=== PATIENT | female | born 1955 | race Caucasian/White ===

== ENCOUNTER 2017-01-03 05:51 | Inpatient (IN) | payer OTHER ==
[2016-12-21 08:14] VITALS: BMI 36.0
--- NOTE | 2016-12-21 08:46 | PAT Medication Instructions ---
Service Date Dec 21, 2016. Current Home Medication List Atorvastatin (Lipitor), 10 MG PO HS Cyclobenzaprine Hcl (Flexeril), 10 MG PO HS PRN for RN Escitalopram Oxalate (Lexapro), 20 MG PO QAM Ibuprofen (Motrin), 800 MG PO BID PRN for RN Levothyroxine Sodium (Levothyroxine Sodium), 1 TAB PO QAM Lorazepam (Ativan), 0.5 MG PO TID PRN for PN Pramipexole (Mirapex), 0.125 MG PO BID Medication Instructions For Your Scheduled Surgery - Check with surgeon for instructions: Ibuprofen (Motrin), 800 MG PO BID PRN for RN - Hold the following medications the morning of surgery: Cyclobenzaprine Hcl (Flexeril), 10 MG PO HS PRN for RN Pramipexole (Mirapex), 0.125 MG PO BID - Take the following medications the morning of surgery with a sip of water: Lorazepam (Ativan), 0.5 MG PO TID PRN for PN Levothyroxine Sodium (Levothyroxine Sodium), 1 TAB PO QAM Escitalopram Oxalate (Lexapro), 20 MG PO QAM - Hold the following medications as scheduled the night before surgery: Pramipexole (Mirapex), 0.125 MG PO BID (okay to take morning dose prior to noon day prior to surgery) - Take the following medications as scheduled the night before surgery: Lorazepam (Ativan), 0.5 MG PO TID PRN for PN Atorvastatin (Lipitor), 10 MG PO HS Cyclobenzaprine Hcl (Flexeril), 10 MG PO HS PRN for RN If you have any questions please call us at [phone] (Cookie Parekh PA-C) or [phone] or [phone]
[2016-12-21 09:35] LABS: BASO % 0.3 %; BASO ABS # 0.02 K/uL (0-0.2); COMPLETE YES; EOS % 4.6 %; HEMATOCRIT 43.2 % (37-47); IG% 0.4 %; LYMPH % 25.5 %; LYMPH ABS # 1.72 K/uL (1.2-3.4); MEAN CELL VOLUME 91.1 fL (80-100); MONO % 8.3 %; NEUT % 60.9 %; PLATELET COUNT 246 K/uL (130-400); RED BLOOD COUNT 4.74 M/uL (4.2-5.4); WHITE BLOOD COUNT 6.74 K/uL (4.8-10.8)
--- NOTE | 2016-12-21 09:41 | DIAGNOSTIC IMAGING REPORT ---
CHEST PREADMISSION(PA/LAT) CLINICAL HISTORY: Preoperative evaluation. COMPARISON STUDY: No previous studies for comparison. FINDINGS: Lung volumes are normal. Lungs are clear. There is no pneumothorax or pleural effusion. Cardiac size is normal. Mediastinal contours are normal. IMPRESSION: No acute cardiopulmonary findings. Electronically signed by: Jefry Barajas M.D. 12/21/2016 9:40 AM Dictated Date/Time: 12/21/2016 9:29 AM
[2016-12-21 09:49] LABS: URINE APPEARANCE CLEAR (CLEAR); URINE BILIRUBIN NEG (NEG); URINE COLOR YELLOW; URINE EPITHELIAL CELL AUTO >30 /lpf (0-5); URINE NITRITE NEG (NEG); URINE SPECIFIC GRAVITY 1.018 (1.000-1.030); UROBILINOGEN NEG (NEG)
[2016-12-21 10:13] LABS: MANUAL MICROSCOPIC REQUIRED? NO; REVIEW REQ? NO
[2016-12-21 10:13] LABS: CALCIUM 9.4 mg/dl (8.5-10.1); CREATININE 0.95 mg/dl (0.60-1.20); POTASSIUM 4.4 mmol/L (3.5-5.1)
[2017-01-03] VITALS (9 sets, daily range): BP systolic 103–153; BP diastolic 65–92; PULSE 70–98; TEMP 36.4–36.7; O2SAT 95–99; Ht 170.2 cm; Wt 104.5 kg
[~2017-01-03] VITALS: Ht 170.2 cm; Wt 104.5 kg
[~2017-01-03 05:51] MED LIST: ATOR10TA88 PO; CYCL10TA6 PO; ESCI1TAB10 PO; IBUP-1428 PO; LEVO25TA5 PO; LORA-741 PO; PRAM0.129 PO
[2017-01-03] MEDS ORDERED: CEFAZOLIN 2000 MG/60 ML D5W IV SCH (06:00)
[2017-01-03] MEDS ORDERED: LACTATED RINGER'S 1000ML 1,000 ML IV SCH (06:00)
[2017-01-03] MEDS ORDERED: FENTANYL CITRATE INJ 50 MCG/1 ML 2 ML VIAL ONE ×4 (06:43→09:48)
[2017-01-03] MEDS ORDERED: MIDAZOLAM HCL 1 MG/ML 2ML VIAL ONE (06:43)
[2017-01-03] MEDS ORDERED: BACITRACIN 50000 UNIT VIAL ONE (06:53)
[2017-01-03] MEDS ORDERED: BUPIVACAINE/EPINEPHRINE 0.5% MPF 1:200,000 30 ML VIAL ONE (06:53)
[2017-01-03] MEDS ORDERED: SODIUM CHLORIDE 0.9% PF 50 ML VIAL ONE (06:53)
--- NOTE | 2017-01-03 07:23 | History & Physical Bridge Note ---
H&P Re-Evaluation Bridge Note: I have examined the patient, reviewed the History & Physical and in the interval since the performance of the History & Physical I have noted the following changes of clinical significance: No changes noted
--- NOTE | 2017-01-03 07:33 | History and Physical ---
History & Physical Date Jan 03, 2017. Chief Complaint back and leg pain History of Present Illness The patient is a 61 year old female with complaints of Additional History Hepatic Disease: No Endocrine Disorder: No Kidney Disease: No Hypertension: No Heart Disease: No Bleeding Tendencies: No Infectious Diseases: No Allergies Coded Allergies: No Known Allergies (Unverified , 01/03/17) Home Medications Scheduled Atorvastatin (Lipitor), 10 MG PO HS Escitalopram Oxalate (Lexapro), 20 MG PO QAM Levothyroxine Sodium (Levothyroxine Sodium), 1 TAB PO QAM Pramipexole (Mirapex), 0.125 MG PO BID Scheduled PRN Cyclobenzaprine Hcl (Flexeril), 10 MG PO HS PRN for RN Ibuprofen (Motrin), 800 MG PO BID PRN for RN Lorazepam (Ativan), 0.5 MG PO TID PRN for PN Physical Examination Skin: warm/dry, no rash Eyes: normal inspection, EOMI, sclerae normal ENT: normal ENT inspection, pharynx normal Head: normocephalic, atraumatic Neck: supple, no adenopathy, trachea midline Respiratory/Chest: lungs clear, normal breath sounds, no respiratory distress Cardiovascular: regular rate, rhythm, no edema, no murmur Abdomen / GI: normal bowel sounds, non tender Back: normal inspection Extremities: normal inspection, normal range of motion Neurologic/Psych: no motor/sensory deficits, alert, normal reflexes, oriented x 3 Diagnosis lumbar stenosis Plan of Treatment decompression fusion L2-S1
[2017-01-03] MEDS ORDERED: HYDROmorphone INJ 2 MG/ML SYR/VIAL ONE ×2 (08:14→10:12)
[2017-01-03] MEDS ORDERED: PHENYLEPHRINE 100MCG/ML 5ML SYR IV PRN (08:30)
[2017-01-03] MEDS ORDERED: ONDANSETRON INJ 2 MG/ML 2 ML VIAL IV PRN ×2 (08:30→10:15)
[2017-01-03] MEDS ORDERED: LABETALOL HCL IV 5 MG/ML 20ML IV PRN (08:30)
[2017-01-03] MEDS ORDERED: NALOXONE HCL 0.4 MG/1 ML VIAL/CARP IV PRN ×3 (08:30→10:15)
[2017-01-03] MEDS ORDERED: MoRPHine SULFATE 4 MG/ML 1 ML CARP\\VIAL IV PRN (08:30)
[2017-01-03] MEDS ORDERED: HYDROmorphone INJ 1 MG/ML SYR IV PRN ×2 (08:30→12:15)
[2017-01-03] MEDS ORDERED: FLUMAZENIL 0.1 MG/1 ML 10 ML VIAL IV PRN (08:30)
[2017-01-03] MEDS ORDERED: ATROPINE SULFATE 0.1 MG/ML 5ML SYR IV PRN (08:30)
[2017-01-03] MEDS ORDERED: EpHEDrine SULFATE INJ 50 MG/ML AMP IV PRN (08:30)
[2017-01-03] MEDS ORDERED: MEPERIDINE HCL 25 MG/ML CARP IV PRN (08:30)
[2017-01-03] MEDS ORDERED: EpHEDrine SULFATE 50MG/5ML SYR ONE (09:12)
[2017-01-03] MEDS ORDERED: PHENYLEPHRINE HCL INJ 10 MG/ML VIAL ONE (09:12)
[2017-01-03] MEDS ORDERED: PHENYLEPHRINE 100MCG/ML 5ML SYR ONE (09:12)
[2017-01-03] MEDS ORDERED: PROPOFOL IV EMULSION 10 MG/ML 20 ML VIAL IV ONE (09:38)
[2017-01-03] MEDS ORDERED: LIDOCAINE HCL 2% 2 ML VIAL (20MG/ML) ONE (09:38)
[2017-01-03] MEDS ORDERED: DEXAMETHASONE SOD INJ 4 MG/ML VIAL ONE (09:38)
[2017-01-03] MEDS ORDERED: ROCURONIUM BROMIDE 10 MG/ML 5 ML VIAL ONE (09:38)
[2017-01-03] MEDS ORDERED: FLOSEAL HEMOSTATIC MATRIX 10ML TOP ONE (09:54)
[2017-01-03] MEDS ORDERED: SODIUM CHLORIDE 0.9% 1000ML 1,000 ML IV SCH (10:03)
--- NOTE | 2017-01-03 10:03 | [facility] Post Operative Brief Note ---
Immediate Operative Summary Operative Date Jan 03, 2017. Pre-Operative Diagnosis Lumbar stenosis Post-Operative Diagnosis Lumbar stenosis Procedure(s) Performed L2-S1 Lumbar Decompression, posterior spinal fusin with instrumentation, interbody Fusion with application of interbody cage at L5-S1, with use of Alona and bone morphogenetic protein. Surgeon Dr Webster Pipe Roller Surgeon(s) Mag Lazo PA-C Estimated Blood Loss 500 Findings stenosis Specimens None per surgeon
--- NOTE | 2017-01-03 10:12 | DIAGNOSTIC IMAGING REPORT ---
INTRAOPERATIVE RADIOGRAPHS CLINICAL HISTORY: L2-S1 spinal fusion. Fluoroscopy time: 32 seconds. FINDINGS: 3 spot fluoroscopic views of lumbar spine are presented. There is evidence of discectomy at L5-S1 with laminectomy and posterior fusion from L2 -S1. Interpedicular screws are present at all levels. The orthopedic hardware appears intact. IMPRESSION: Intraoperative images from L2 -S1 spinal fusion as above. Electronically signed by: Dontae Campa M.D. 01/03/2017 10:11 AM Dictated Date/Time: 01/03/2017 10:10 AM
[2017-01-03] MEDS ORDERED: ONDANSETRON INJ 2 MG/ML 2 ML VIAL ONE (10:13)
[2017-01-03] MEDS ORDERED: GLYCOPYRROLATE INJ 0.2 MG/ML VIAL ONE (10:13)
[2017-01-03] MEDS ORDERED: KETOROLAC TROMETHAMINE 30 MG/ML VIAL ONE (10:13)
[2017-01-03] MEDS ORDERED: NEOSTIGMINE METHYLSULFATE 1 MG/ML 10ML VIAL ONE (10:13)
[2017-01-03] MEDS ORDERED: DO NOT ADMINISTER FLU VACCINE PRN ×3 (10:15)
[2017-01-03] MEDS ORDERED: hydrOXYzine HCL 25 MG TAB PO PRN (10:15)
[2017-01-03] MEDS ORDERED: LORAZEPAM 0.5 MG TAB PO PRN (10:15)
[2017-01-03] MEDS ORDERED: METOCLOPRAMIDE HCL INJ 5 MG/ML 2 ML VIAL IV PRN (10:15)
[2017-01-03] MEDS ORDERED: ALUMINUM/MAGNESIUM SUSP 30 ML UDC PO PRN (10:15)
[2017-01-03] MEDS ORDERED: DO NOT ADMINISTER PNEUMOCOCCAL VACCINE PRN ×2 (10:15)
[2017-01-03] MEDS ORDERED: BISACODYL 10 MG SUPP PR PRN (10:15)
[2017-01-03] MEDS ORDERED: MAGNESIUM HYDROXIDE SUSP 30 ML UDC PO PRN (10:15)
[2017-01-03] MEDS ORDERED: SOD PHOSPHATE/SOD BIPHOSPHATE ENEMA 132 ML BTL PR PRN (10:15)
[2017-01-03] MEDS ORDERED: FAMOTIDINE 20 MG TAB PO PRN (10:15)
[2017-01-03] MEDS ORDERED: ACETAMINOPHEN IV 100 ML IV PRN (10:15)
[2017-01-03] MEDS ORDERED: PROMETHAZINE HCL INJ 12.5 MG in SODIUM CHLORIDE 0.9% 50ML 50 ML IV PRN (10:15)
[2017-01-03] MEDS ORDERED: LORAZEPAM INJ 0.5 MG in SYRINGE 0 ML IV PRN (10:15)
--- NOTE | 2017-01-03 10:23 | OPERATIVE REPORT ---
DATE OF OPERATION: 01/03/2017 PREOPERATIVE DIAGNOSIS: Spinal stenosis. POSTOPERATIVE DIAGNOSIS: Same. PROCEDURES PERFORMED: 1. Lumbar decompression, medial facetectomy and foraminotomy, L2-L3, L3-L4, L4-L5, and L5-S1. 2. Posterior spinal fusion, L2-L3, L3-L4, L4-L5, and L5-S1. 3. Placement of posterior segmental instrumentation using Orthros rods and screws, L2-S1 as well as a crosslink. 4. Interbody fusion, L5-S1. 5. Placement of PEEK cage, 12 x 26 mm at L5-S1. 6. Placement of locally harvested morselized autograft in the posterior gutters. 7. Placement of Infuse collagen sponge combined with Mastergraft in the posterior gutters and Alona bone grafting in the interbody space. SURGEON: Dr. Levi Webster. CUSTOMER RELATIONS ADVISOR: Mag Lazo PA-C. Due to the complex nature of the procedure, the entire surgery was performed with the compliance assistant of Mag Lazo PA-C. The clinical assistant professor, under direct supervision, was involved in the actual performance of all aspects of the surgical procedure including hemostasis, tissue retraction and incision, instrument management, patient positioning, and wound closure. ANESTHESIA: General. DISPOSITION: The patient awakened and taken to PACU in stable condition. HISTORY OF PATIENT'S PROBLEMS: This is a 61-year-old female that presents with above-mentioned diagnosis. After failing an extensive course of nonoperative care, she elected to undergo the above-mentioned procedures. Risks, benefits, pros, cons, and alternatives were outlined in detail preoperatively. DESCRIPTION OF PROCEDURE: The patient was met with preoperatively, the case discussed and all questions were addressed. At that point, the patient was taken back to operative suite and after undergoing successful general intubation by the department of anesthesia, she was placed in prone position on Angelito table atop Luca frame. All bony prominences were well padded and the eyes were inspected to ensure there was no external pressure placed upon them. At this point, lumbar spine was prepped and draped in normal sterile fashion. Sharp dissection with the assistance of Bovie cautery was performed down to and exposing the lamina and transverse processes of L2, L3, L4, L5 and sacral ala bilaterally. From a caudal to cephalad fashion, complete laminectomy of L5, L4, L3 and L2 was performed addressing severe lateral recess and foraminal stenosis. Pedicle screws were then placed in L2, L3, L4, L5 and S1 levels bilaterally with the assistance of fluoroscopy and appropriately sized angela contoured and placed. Through a transforaminal approach on the right, a complete diskectomy of L5-S1 was performed, endplates curetted to subcortical bleeding bone and a 12 x 26 mm PEEK cage filled with Alona bone grafting tapped into position. Rods were then locked into final position bilaterally and a crosslink placed. The transverse processes of L2, L3, L4, L5 and sacral ala were then burred to subcortical bleeding bone. Infuse collagen sponge combined with Mastergraft and locally harvested morselized autograft was placed in the posterior gutters. A 7 flat KAREEN drain was inserted. Incision was closed with 1-0 Vicryl in the fascia, 2-0 Vicryl subcutaneously, and 4-0 Monocryl for final skin closure. Steri-Strips and sterile dressing were placed. The patient was awakened and taken to PACU in stable condition. I attest to the content of the Intraoperative Record and any orders documented therein. Any exceptio ns are noted below.
[2017-01-03] MEDS ORDERED: HYDROmorphone HCL 0.5MG/ML 50 ML CASSETTE ONE (10:29)
[2017-01-03] MEDS ORDERED: METOPROLOL TARTRATE 1 MG/ML VIAL ONE (10:57)
[2017-01-03] MEDS ORDERED: METOPROLOL TARTRATE 1 MG/ML VIAL IV STA (11:02)
--- NOTE | 2017-01-03 11:13 | Anesthesiology Progress Note ---
Anesthesia Post Op Note Date & Time Jan 03, 2017 at 11:13 Vital Signs Pain Intensity: 0 Vital Signs Past 12 Hours Date Time Temp Pulse Resp B/P Pulse Ox O2 Delivery O2 Flow Rate FiO2 01/03/17 10:27 36.3 97 14 120/65 96 Mask 10 01/03/17 06:15 36.4 70 20 153/92 99 Room Air Notes Mental Status: alert / awake / arousable, participated in evaluation Pt Amnestic to Procedure: Yes Nausea / Vomiting: adequately controlled Pain: adequately controlled Airway Patency, RR, SpO2: stable & adequate BP & HR: stable & adequate Hydration State: stable & adequate Anesthetic Complications: no major complications apparent
[2017-01-03] MEDS: LACTATED RINGER'S 1000ML 1,000 ML IV SCH ×2 (12:03→18:03)
[2017-01-03] MEDS: HYDROmorphone HCL 0.5MG/ML 50 ML CASSETTE IV PRN ×2 (14:59→18:58)
[2017-01-03] MEDS: CEFAZOLIN IV 2,000 MG in DEXTROSE 5% 50ML 50 ML IV SCH ×2 (16:06→23:35)
[2017-01-03] MEDS: DEXAMETHASONE INJ 6 MG in SYRINGE 0 ML IV SCH (18:04)
[2017-01-03] MEDS: DOCUSATE SODIUM/SENNA 50/8.6MG TAB PO SCH (20:33)
[2017-01-03] MEDS: PRAMIPEXOLE DIHYDROCHLORIDE 0.25MG TAB PO SCH (20:33)
[2017-01-03] MEDS: ATORVASTATIN 10 MG TAB PO SCH (20:33)
[2017-01-04] MEDS: LACTATED RINGER'S 1000ML 1,000 ML IV SCH (00:57)
[2017-01-04] MEDS: DEXAMETHASONE INJ 6 MG in SYRINGE 0 ML IV SCH ×2 (01:53→10:08)
[2017-01-04 03:16] VITALS: BP 123/65; PULSE 86; TEMP 36.9; O2SAT 94
[2017-01-04] MEDS: LEVOTHYROXINE 25 MCG TAB PO SCH (05:51)
[2017-01-04] MEDS ORDERED: NURSING DECISION MEDICATION ORDER SCH (06:00)
[2017-01-04] MEDS ORDERED: DC PCA SCH (06:00)
[2017-01-04] MEDS ORDERED: HYDROmorphone INJ 0.5 MG/0.5 ML SYR IV PRN (06:00)
[2017-01-04 06:09] LABS: COMPLETE YES; HEMATOCRIT 32.6 % (37-47); IG% 0.4 %; LYMPH % 3.2 %; LYMPH ABS # 0.44 K/uL (1.2-3.4); MEAN CELL VOLUME 92.6 fL (80-100); MEAN CORPUSCULAR HEMOGLOBIN 30.7 pg (25-34); MEAN CORPUSCULAR HGB CONC 33.1 g/dl (32-36); MEAN PLATELET VOLUME 10.3 fL (7.4-10.4); MONO % 5.6 %; NEUT % 90.8 %; PLATELET COUNT 191 K/uL (130-400); RED BLOOD COUNT 3.52 M/uL (4.2-5.4); WHITE BLOOD COUNT 13.69 K/uL (4.8-10.8)
[2017-01-04 06:38] LABS: BUN/CREATININE RATIO 10.7 (10-20); CALCIUM 8.6 mg/dl (8.5-10.1); CREATININE 0.88 mg/dl (0.60-1.20); POTASSIUM 4.3 mmol/L (3.5-5.1)
[2017-01-04 07:05] VITALS: BP 99/61; PULSE 81; TEMP 36.6; O2SAT 91
--- NOTE | 2017-01-04 08:40 | PROGRESS NOTE ---
DATE: 01/04/2017 DATE: 01/04/2017. SUBJECTIVE: Postop day 1. Back pain controlled. Leg pain markedly improved. Vital signs stable. T-max 36.9. KAREEN drained 125 mL. Hematocrit this a.m. is 32.6. OBJECTIVE: On exam she is sitting up at the bedside. Has good strength to testing. Appears comfortable. ASSESSMENT: Status post lumbar decompression and fusion. PLAN: At this time, will initiate physical therapy, advance her bowel regimen and assess her progress and anticipate possible home this weekend.
[2017-01-04] MEDS: ESCITALOPRAM OXALATE 20 MG TAB PO SCH (08:55)
[2017-01-04] MEDS: PRAMIPEXOLE DIHYDROCHLORIDE 0.25MG TAB PO SCH ×2 (08:56→20:54)
[2017-01-04] MEDS: OXYCODONE HCL IR 5 MG TAB (IMMEDIATE RELEASE) PO PRN ×3 (09:02→22:18)
--- NOTE | 2017-01-04 10:32 | Anesthesiology Progress Note ---
Anesthesia Post Op Note Date & Time Jan 04, 2017 at 10:29 Vital Signs Vital Signs Past 12 Hours Date Time Temp Pulse Resp B/P Pulse Ox O2 Delivery O2 Flow Rate FiO2 01/04/17 07:51 Room Air 01/04/17 07:05 36.6 81 16 99/61 91 Room Air 01/04/17 03:16 36.9 86 16 123/65 94 Room Air 01/03/17 22:57 36.7 98 16 114/68 96 Room Air Notes Mental Status: alert / awake / arousable, participated in evaluation Pt Amnestic to Procedure: Yes Nausea / Vomiting: adequately controlled Pain: adequately controlled Airway Patency, RR, SpO2: stable & adequate BP & HR: stable & adequate Hydration State: stable & adequate Anesthetic Complications: no major complications apparent
[2017-01-04 10:48] VITALS: BP 124/73; PULSE 80; TEMP 36.5; O2SAT 90
[2017-01-04 15:10] VITALS: BP 126/79; PULSE 80; TEMP 36.6; O2SAT 96
[2017-01-04] MEDS: DOCUSATE SODIUM/SENNA 50/8.6MG TAB PO SCH (20:52)
[2017-01-04] MEDS: ATORVASTATIN 10 MG TAB PO SCH (20:54)
[2017-01-04 22:50] VITALS: BP 123/75; PULSE 72; TEMP 36.7; O2SAT 91
[2017-01-05] MEDS: LEVOTHYROXINE 25 MCG TAB PO SCH (05:40)
[2017-01-05] MEDS: POLYETHYLENE (MIRALAX) 17 GM PACK PO SCH ×3 (05:40→17:18)
[2017-01-05] MEDS: OXYCODONE HCL IR 5 MG TAB (IMMEDIATE RELEASE) PO PRN ×3 (05:45→23:38)
[2017-01-05 06:00] VITALS: BP 135/80; PULSE 75; TEMP 36.4; O2SAT 98
[2017-01-05] MEDS: PRAMIPEXOLE DIHYDROCHLORIDE 0.25MG TAB PO SCH ×2 (07:27→21:23)
[2017-01-05] MEDS: ESCITALOPRAM OXALATE 20 MG TAB PO SCH (07:27)
[2017-01-05 07:54] VITALS: BP 114/74; PULSE 72; TEMP 36.7; O2SAT 95
[2017-01-05] MEDS: ACETAMINOPHEN 500 MG TAB PO PRN ×2 (09:04→17:14)
[2017-01-05 09:17] VITALS: O2SAT 95
[2017-01-05] MEDS ORDERED: RXC5 PO (10:35)
--- NOTE | 2017-01-05 10:36 | Discharge Instructions ---
Discharge Instructions Date of Service Jan 05, 2017. Admission Reason for Admission: Lumbar Spinal Stenosis Discharge Discharge Diagnosis / Problem: stenosis Discharge Goals Goal(s): Improve function Activity Recommendations Activity Limitations: per Instructions/Follow-up section . Instructions / Follow-Up Instructions / Follow-Up ACTIVITY RECOMMENDATIONS: SELF CARE INSTRUCTIONS AFTER THORACIC/LUMBAR FUSIONS 1. You may walk to your tolerance. It is good exercise for your legs and back. Expect some back and intermittent leg aches and pains. 2. You may perform "counter-top" level activities (make a sandwich, velasquez with a project, etc.). 3. No bending or lifting of more than 10 pounds or back twisting of any nature (roll like a log when turning in bed). 4. You may ride in a car for 20-30 minutes at a time. No driving until after your first visit with your doctor. 5. Frequent changes of position and restricting sitting to 30 minutes at a time will help limit the amount of back spasms and stiffness you may experience. 6. You may discontinue the use of ambulatory aids (cane, crutches, etc.) once your strength and confidence allow. 7. You may chlorinator operator the shower and let water strike your incision when you arrive home at least once daily. Do not take a tub bath, sit in a hot tub or go into a swimming pool until after your first recheck in the office. SPECIAL CARE INSTRUCTIONS: VERY IMPORTANT TO READ AND REVIEW A. Your surgical incision has been closed with a cosmetic suture under the skin that will dissolve in about 6 weeks. In 14 days, you can use a pair of clean scissors and cut the suture that is left outside of the skin at the ends of your incision. 1. The small skin tapes can be removed 7 days after surgery if they have not fallen off by that point. 2. You may keep the wound open to air as much as possible to promote healing after post-op day number 5 unless told otherwise by your doctor. 3. If you think the wound looks like it is becoming infected (redness or worsening drainage) and/or you are experiencing fever, chill or worsening back pain and muscle spasms, contact the office so that we may evaluate you as soon as possible. B. Complications are uncommon, but please contact us if you have any signs or symptoms of: 1. wound infection (fever higher than 102.5 degrees F, redness, separation of wound, drainage, or increasing pain from the incision) 2. blood clots in legs (pain, swelling, redness and warmth in legs) 3. urinary tract infection (fever higher than 102.5 degrees F, burning upon urination or increased frequency of urination) 4. nerve problems (inability to walk on your toes or heels, numbness, loss of bowel or bladder control) 5. any other symptoms that concern you C. Please call the office at if you have any concerns or questions about your operation or recovery. D. No smoking! Smoking drastically decreases the chance of a solid fusion. E. Do not take any anti-inflammatory medications (Indocin, Advil, Motrin, Aspirin, Naprosyn, etc.) as these may inhibit the chance of a solid fusion. Tylenol is okay to take for pain. MANAGING PAIN AFTER SPINAL SURGERY 1. Narcotic medication is intended for short-term use and will be provided for surgical pain. Surgical pain usually lasts for a period of 4-6 weeks. Narcotic medication includes Percocet, Vicodin, Darvocet, Tylenol #3 or Lortab. 2. Longer-term pain is more appropriately treated with non-narcotic medication such as Tylenol ES. 3. Muscle spasm is not appropriately treated with narcotics. Muscle relaxers such as Soma, Flexeril or Skelaxin can be used along with Tylenol ES. 4. Remember that we all live with some "aches and pains". This is not unusual or uncommon after an injury or as we get older. a. Back pain is expected and may include muscle spasms for 4 to 6 weeks after surgery. The pain should gradually improve. If the pain worsens for no apparent reason, please contact the office. b. Intermittent leg pain may also be experienced and should not be concerned about unless it worsens for no apparent reason. If so, please contact the office. 5. We will provide appropriate medication within the normal guidelines of their prescribed use. We will also be very cautious and aware of potential abuse and extended duration of patients' medication needs. a. Pain medications are for your comfort and to assist with sleep and rest so that the tissue can heal. They are not provided in order to return to normal activity and should not be used through the day. To do so or worsening pain at night can result from ongoing tissue damage and development of tolerance to the prescribed medicine. 6. Please allow 2-3 days to process refills. Prescriptions will not be mailed but must be picked up at the office. FOLLOW UP VISIT: Keep your scheduled follow-up appointment. Any questions, please call the office at . Current Hospital Diet Patient's current hospital diet: Regular Diet Discharge Diet Recommended Diet: Regular Diet Procedures Procedures Performed: L2-S1 Lumbar Decompression, posterior spinal fusin with instrumentation, interbody Fusion with application of interbody cage at L5-S1, with use of Alona and bone morphogenetic protein. Pending Studies Studies pending at discharge: no Medical Emergencies . Who to Call and When: Medical Emergencies: If at any time you feel your situation is an emergency, please call 911 immediately. . Non-Emergent Contact Non-Emergency issues call your: Primary Care Provider . "Provider Documentation" section prepared by Levi Webster. VTE Core Measure Inpt VTE Proph given/why not?: Mary Thomas, [facility]
[2017-01-05 11:42] VITALS: BP 120/70; PULSE 68; TEMP 36.8; O2SAT 97
--- NOTE | 2017-01-05 14:24 | PROGRESS NOTE ---
DATE: 01/05/2017 SUBJECTIVE: Postop day #2. Back pain is controlled. Leg pain improved. Vital signs stable. T-max 36.8. KAREEN drained 100 mL today. Bowel movements today. PHYSICAL EXAMINATION: VITAL SIGNS: Stable. She has excellent strength to testing, appears comfortable. ASSESSMENT: Status post multilevel lumbar decompression and fusion. PLAN: At this time, will maintain the KAREEN drain today. Continue with therapy. Anticipate discharge home tomorrow.
[2017-01-05 15:07] VITALS: BP 121/80; PULSE 73; TEMP 36.7; O2SAT 97
[2017-01-05] MEDS ORDERED: NURSING VERBAL MED ORDER ONE (17:30)
[2017-01-05] MEDS: DOCUSATE SODIUM/SENNA 50/8.6MG TAB PO SCH (21:00)
[2017-01-05] MEDS: ATORVASTATIN 10 MG TAB PO SCH (21:23)
[2017-01-05 23:19] VITALS: BP 111/72; PULSE 81; TEMP 37.2; O2SAT 97
[2017-01-06] MEDS: OXYCODONE HCL IR 5 MG TAB (IMMEDIATE RELEASE) PO PRN ×2 (04:13→11:03)
[2017-01-06] MEDS: LEVOTHYROXINE 25 MCG TAB PO SCH (05:41)
[2017-01-06 07:33] VITALS: BP 110/70; PULSE 83; TEMP 36.7; O2SAT 94
[2017-01-06] MEDS: PRAMIPEXOLE DIHYDROCHLORIDE 0.25MG TAB PO SCH (08:11)
[2017-01-06] MEDS: ESCITALOPRAM OXALATE 20 MG TAB PO SCH (08:11)
[2017-01-06] MEDS: ACETAMINOPHEN 500 MG TAB PO PRN (08:14)
[2017-01-06 09:53] VITALS: BP 110/70; PULSE 83; TEMP 36.7; O2SAT 94
--- NOTE | 2017-01-06 10:18 | DISCHARGE SUMMARY ---
DATE OF DISCHARGE: 01/06/2017. PRINCIPAL DIAGNOSIS: Spinal stenosis. HOSPITAL COURSE FOLLOWS: On 01/03/2017 patient underwent lumbar decompression and fusion, tolerated this well and taken to the orthopedic floor postoperatively. Postop day #1, she was up ambulatory, progressed to postop day #2. On postop day #3, KAREEN drain decreased appropriately, pain was well controlled, subsequently discharged home. Discharge orders and instructions can be found on the chart for further review.
== END 2017-01-06 11:21 | disposition home health service (06) | DRG 460 ==
LOC: ENRESERVDT → ENRESERVTM → C.ACU 05:51 → C.3E 10:06
PROVIDERS: ADMIT Orthopaedic Surgery Orthopaedic Surgery of the Spine; ATTEND Orthopaedic Surgery Orthopaedic Surgery of the Spine
PROC: 0SG1071 Fusion of 2 or more Lumbar Vertebral Joints with Autologous Tissue Substitute, Posterior Approach, Posterior Column, Open Approach (ICD-10-PCS; principal; 2017-01-03 07:45)
PROC: 0SG30AJ Fusion of Lumbosacral Joint with Interbody Fusion Device, Posterior Approach, Anterior Column, Open Approach (ICD-10-PCS; principal; 2017-01-03 07:45)
PROC: 0SG3071 Fusion of Lumbosacral Joint with Autologous Tissue Substitute, Posterior Approach, Posterior Column, Open Approach (ICD-10-PCS; principal; 2017-01-03 07:45)
DX: M48.06 Spinal stenosis, lumbar region (principal); E78.5 Hyperlipidemia, unspecified; E03.9 Hypothyroidism, unspecified; F32.9 Major depressive disorder, single episode, unspecified; E66.9 Obesity, unspecified; Z68.36 Body mass index [BMI] 36.0-36.9, adult; Z79.899 Other long term (current) drug therapy

== ENCOUNTER 2020-10-08 07:20 | Inpatient (IN) ==
--- NOTE | 2020-09-27 13:22 | PAT Medication Instructions ---
Medication Instructions Date of Service September 27, 2020 Home Medications ATORVASTATIN (LIPITOR) 10 mg PO HS CYCLOBENZAPRINE HCL (FLEXERIL) 10 mg PO HS PRN Escitalopram Oxalate (Lexapro) 20 mg PO QAM LEVOTHYROXINE SODIUM 1 tab PO QAM LORAZEPAM (ATIVAN) 0.5 mg PO BID celecoxib [Celebrex] 200 mg PO QAM ASK your surgeon for instructions celecoxib [Celebrex] 200 mg PO QAM Take morning of surgery With a small sip of water, OTHERWISE NOTHING TO EAT OR DRINK AFTER MIDNIGHT: Escitalopram Oxalate (Lexapro) 20 mg PO QAM LEVOTHYROXINE SODIUM 1 tab PO QAM LORAZEPAM (ATIVAN) 0.5 mg PO BID Take evening before surgery ATORVASTATIN (LIPITOR) 10 mg PO HS CYCLOBENZAPRINE HCL (FLEXERIL) 10 mg PO HS PRN (if needed) LORAZEPAM (ATIVAN) 0.5 mg PO BID Other Notes If you have any questions please call us at [phone] or [phone] or [phone] or [phone]
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
--- NOTE | 2020-09-28 15:05 | XRay Report ---
XR chest Pre-admission PA/Lat CLINICAL HISTORY: Preoperative evaluation. COMPARISON STUDY: Chest radiograph December 21, 2016. FINDINGS: Lung volumes are normal. Lungs are clear. There is no pneumothorax or pleural effusion. Car diac size is normal. Mediastinal contours are normal. There is no evidence for pulmonary edema. Spina l fusion hardware is partially visualized on lateral projection. IMPRESSION: No acute cardiopulmonary findings. ACT 112: Negative or not required by law. Electronically signed by: Jefry Barajas M.D. 09/28/2020 3:03 PM
[2020-09-28 15:30] LABS: Basophils # (auto) 0.03 K/uL (0-0.2); Basophils % (auto) 0.5 %; Eosinophils # (auto) 0.25 K/uL (0-0.5); Eosinophils % (auto) 3.9 %; Hematocrit (blood only) 42.3 % (37-47); Immature Granulocytes # (auto) 0.01 K/uL (0.00-0.02); Immature Granulocytes % (auto) 0.2 %; Lymphocytes # (auto) 1.51 K/uL (1.2-3.4); Lymphocytes % (auto) 23.4 %; Mean Corpuscular Hemoglobin 30.8 pg (25-34); Mean Corpuscular Hgb Conc 33.1 g/dL (32-36); Mean Corpuscular Volume 93.2 fL (80-100); Mean Platelet Volume 10.6 fL (7.4-10.4); Monocytes # (auto) 0.48 K/uL (0.11-0.59); Monocytes % (auto) 7.4 %; Neutrophils # (auto) 4.17 K/uL (1.4-6.5); Neutrophils % (auto) 64.6 %; Platelet Count 247 K/uL (130-400); RDW Coefficient of Variation 13.3 % (11.5-14.5); RDW Standard Deviation 45.6 fL (36.4-46.3); Red Blood Count 4.54 M/uL (4.2-5.4); White Blood Count 6.45 K/uL (4.8-10.8)
--- NOTE | 2020-09-28 15:43 | Electrocardiogram Report ---
Test Reason : Blood Pressure : / mmHG Vent. Rate : 061 BPM Atrial Rate : 061 BPM P-R Int : 158 ms QRS Dur : 100 ms QT Int : 434 ms P-R-T Axes : 065 023 046 degrees QTc Int : 436 ms Normal sinus rhythm Normal ECG When compared with ECG of 21-DEC-2016 08:56, No significant change was found Confirmed by Kaden Robison ([id number]) on 09/28/2020 3:43:30 PM Referred By: Levi Webster Confirmed By:Kaden Robison
[2020-09-28 15:47] LABS: Appearance Urine Clear (Clear); Bilirubin Urine Negative (Negative); Blood Urine Negative (Negative); Color Urine Yellow; Glucose Urine UA Negative (Negative); Ketones Urine Negative (Negative); Leukocyte Esterase Urine Negative (Negative); Nitrite Urine Negative (Negative); Protein Urine Negative (Negative); Specific Gravity Urine 1.025 (1.000-1.030); Urobilinogen Urine Negative (Negative); pH Urine 5.5 (4.5-7.5)
[2020-09-28 15:55] LABS: Partial Thromboplastin Ratio 0.9; Partial Thromboplastin Time 25.6 Seconds (21.0-31.0); Prothrombin Time 10.2 Seconds (9.0-12.0)
[2020-09-28 16:13] LABS: BUN Creatinine Ratio 17.3 (10-20); Calcium 9.6 mg/dl (8.5-10.1); Creatinine Clr Calc Pharmacy 85.4 ml/min; Est GFR (African American) 87.1; Est GFR (Non-African American) 75.2; Potassium 4.2 mmol/L (3.5-5.1)
[~2020-10-08 07:20] MED LIST changes: +ACETAMINOPHEN 500 MG TAB PO SCH; -ATOR10TA88 PO; -CYCL10TA6 PO; +CeleBREX 200 MG CAP PO SCH; -ESCI1TAB10 PO; +GABAPENTIN 300 MG CAP PO SCH; -IBUP-1428 PO; -LEVO25TA5 PO; -LORA-741 PO; +LR 15ML/HR IV SCH; -PRAM0.129 PO; +ceFAZolin 2000MG 2,000 MG/15 ML SYR IV SCH
[2020-10-08] MEDS ORDERED: LIDOCAINE HCL 2% 2 ML VIAL/AMP(20MG/ML) INFIL ONE (08:31)
[2020-10-08] MEDS ORDERED: ONDANSETRON INJ 2 MG/ML 2 ML VIAL ONE (08:31)
[2020-10-08] MEDS ORDERED: PROPOFOL IV EMULSION 10 MG/ML 20 ML VIAL IV ONE (08:31)
[2020-10-08] MEDS ORDERED: ROCURONIUM BROMIDE 10 MG/ML 5 ML VIAL IV ONE (08:31)
[2020-10-08] MEDS ORDERED: fentaNYL citrate 100 MCG/2 ML VIAL ONE (08:32)
[2020-10-08] MEDS ORDERED: MIDAZOLAM HCL 1 MG/ML 2ML VIAL ONE (08:32)
--- NOTE | 2020-10-08 09:00 | History & Physical Bridge Note ---
Date of Service October 08, 2020 History & Physical Bridge Note I have examined the patient, reviewed the History & Physical and in the interval since the performance of the History & Physical I have noted the following changes of clinical significance: no changes noted
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
[2020-10-08] MEDS ORDERED: BUPIVACAINE/EPINEPHRINE 0.5% MPF 1:200,000 30 ML VIAL ONE (09:22)
[2020-10-08] MEDS ORDERED: BACITRACIN INJ 50,000 UNIT VIAL ONE (09:22)
[2020-10-08] MEDS ORDERED: FLOSEAL HEMOSTATIC MATRIX 10ML TOP ONE (10:12)
[2020-10-08] MEDS ORDERED: GLYCOPYRROLATE 0.2 MG/ML VIAL ONE (11:08)
[2020-10-08] MEDS ORDERED: NEOSTIGMINE METHYLSULFATE 1 MG/ML 10ML VIAL ONE (11:08)
--- NOTE | 2020-10-08 11:11 | Operative Report ---
Post Operative Report Pre & Post Diagnosis Operation Date: 10/08/20 09:05 Pre-Op Diagnosis: Spinal Stenosis, Thoracic Region Post-Op Diagnosis: Spinal Stenosis, Thoracic Region I identified the patient and participated in the time-out.: Yes Procedure Operation Date: 10/08/20 09:05 Actual Procedures #1 thoracic decompression with bilateral medial facetectomies T11-T12. #2 posterior spinal fusion T11-T12. #3 placement posterior instrumentation T11- T12. #4 placement locally harvested morselized autograft in the posterior gutters. #5 placement of infuse collagen sponge, master graft in the posterior lateral gutters. Surgeon Levi Webster, DO Nutrition Services Aide Yohannes Estes Estimated Blood Loss 100 Findings See Below The patient is 5 foot 7 inches tall weighing over 107 kg with a BMI in excess of 37. The patient's body habitus did add increased technical difficulty with dissection and exposure require longus instruments in order to perform her procedure. This added at least 25% increase to the operative time. Specimens None Indications This is a 65-year-old female well-known to me the presents with Description of Procedure Patient was met with identified informed consent obtained. Patient was then taken to the operative suite underwent an patient placed in a prone position on the Angelito table atop the Luca frame. All bony prominences well-padded eyes inspected to ensure no external pressure placed upon the. This point the thora columbar spine was prepped and draped in a sterile fashion. Sharp dissection with the assistance of pericardial performed down to and exposing the lamina and transverse processes of T11-T12. Then performed a complete laminectomy of T11 including bilateral medial facetectomies and foraminotomies to provide wide decompression. Pedicle screws were then placed in T11-T12 bilaterally with assistance of fluoroscopy the proper sized angela locked in position. The remaining facet joints and transverse processes were then burred to subcortical any bone. Infuse collagen sponge mass graft local autograft was placed in posterior gutters. 15 round KAREEN drain inserted. The incision was then closed with 1 Vicryl the fascia 2-0 Vicryl subcutaneously and 4 Monocryl for final skin closure. Steri-Strip sterile dressings placed. Patient waken taken to PACU stable condition. Please note Yohannes ochoa was present at the entire procedure involved the patient positioning complex portions of the surgery and final skin closure. Lastly spinal cord monitoring was utilized at the procedure no changes noted. I attest to the content of the Intraoperative Record and any orders documented therein. Any exceptions are noted below.
--- NOTE | 2020-10-08 11:58 | Fluoroscopy Report ---
FL thoracic spine 2V CLINICAL HISTORY: T11-T12 DECOMPRESSION, FUSION COMPARISON STUDY: None. FLUOROSCOPY TIME: 26 seconds. FINDINGS: 2 fluoroscopic spot images of the thoracolumbar spine were submitted. Posterior decompressi on fusion at T11-T12 with pedicle screws and rods. The hardware is intact. There is partially visuali zed lower lumbar spinal fusion hardware. IMPRESSION: Fluoroscopy provided for T11-T12 posterior decompression and fusion. ACT 112: Negative or not required by law. Electronically signed by: Frederick Nelson M.D. 10/08/2020 11:57 AM
[2020-10-08] MEDS ORDERED: LORazepam 0.5 MG TAB PO PRN (12:39)
[2020-10-08] MEDS ORDERED: METOCLOPRAMIDE HCL INJ 5 MG/ML 2 ML VIAL IV PRN (12:39)
[2020-10-08] MEDS ORDERED: ONDANSETRON INJ 2 MG/ML 2 ML VIAL IV PRN (12:39)
[2020-10-08] MEDS ORDERED: HYDROmorphone INJ 1 MG/ML SYRINGE IV PRN (12:39)
[2020-10-08] MEDS ORDERED: NALOXONE HCL 0.4 MG/1 ML VIAL/CARP IV PRN (12:39)
[2020-10-08] MEDS ORDERED: PROMETHAZINE HCL 12.5 MG in SODIUM CHLORIDE 0.9% 50 ML IV PRN (12:39)
[2020-10-08] MEDS ORDERED: diphenhydrAMINE Capsule 25 MG CAP PO PRN (12:39)
[2020-10-08] MEDS ORDERED: DO NOT ADMINISTER FLU VACCINE PRN (12:39)
[2020-10-08] MEDS ORDERED: DO NOT ADMINISTER PNEUMOCOCCAL VACCINE PRN (12:39)
[2020-10-08] MEDS ORDERED: ALUMINUM/MAGNESIUM SUSP 30 ML UDC PO PRN (12:39)
[2020-10-08] MEDS ORDERED: bisacodyL 10 MG SUPP PR PRN (12:39)
[2020-10-08] MEDS ORDERED: HYDROmorphone INJ 0.5 MG/0.5 ML SYR IV PRN (12:39)
[2020-10-08] MEDS ORDERED: ONDANSETRON 4 MG OD TAB PO PRN (12:39)
[2020-10-08] MEDS ORDERED: MAGNESIUM HYDROXIDE SUSP 30 ML UDC PO PRN (12:39)
[2020-10-08] MEDS ORDERED: hydrOXYzine HCl 25 MG TAB PO PRN (12:39)
[2020-10-08] MEDS ORDERED: CYCLOBENZAPRINE HCL 10 MG TAB PO PRN (12:39)
[2020-10-08] MEDS ORDERED: oxyCODONE HCL IR 5 MG TAB (IMMEDIATE RELEASE) PO PRN (12:39)
[2020-10-08] MEDS ORDERED: LORazepam 0.5 MG/1 ML VIAL IV PRN (12:39)
[2020-10-08] MEDS ORDERED: SOD PHOSPHATE/SOD BIPHOSPHATE ENEMA 132 ML BTL PR PRN (12:39)
[2020-10-08] MEDS ORDERED: FAMOTIDINE 20 MG TAB PO PRN (12:39)
--- NOTE | 2020-10-08 13:22 | Anesthesiology Progress Note ---
Date of Service October 08, 2020 Anesthesia Post Procedure Vital Signs Vital Signs: Temp Pulse Pulse Resp BP Pulse Ox 10/08/20 13:19 36.6 C 62 18 129/72 97 10/08/20 12:15 37.0 C 61 20 116/69 97 10/08/20 12:05 37.0 C 64 16 130/75 97 10/08/20 11:55 37.0 C 68 18 125/79 97 10/08/20 11:45 63 21 118/73 97 10/08/20 11:35 66 22 117/72 98 10/08/20 11:29 36.2 C L 70 16 134/80 96 10/08/20 07:47 36.9 C 66 18 145/79 H 97 Pain Intensity Right Anterior Groin: Pain Intensity: 0 Transfer of Care Handoff Completed per policy Notes Mental Status: alert / awake / arousable and participated in evaluation Patient Amnestic to Procedure: Yes Nausea / Vomiting: adequately controlled Pain: adequately controlled Airway Patency, RR, SpO2: stable & adequate BP & HR: stable & adequate Hydration State: stable & adequate Anesthetic Complications: no major complications apparent and Pt Satisfied with anesthetic care
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
[2020-10-08] MEDS: SODIUM CHLORIDE 0.9% 1000ML 1,000 ML IV SCH (14:26)
[2020-10-08] MEDS: KETOROLAC TROMETHAMINE 15 MG/ML VIAL IV SCH (17:49)
[2020-10-08] MEDS: ceFAZolin 2000MG 2,000 MG/15 ML SYR IV SCH (17:49)
[2020-10-08] MEDS: ATORVASTATIN 10 MG TAB PO SCH (20:15)
[2020-10-08] MEDS: DOCUSATE SODIUM/SENNA 50/8.6MG TAB PO SCH (20:15)
[2020-10-08] MEDS: PRAMIPEXOLE DIHYDROCHLO 0.5 MG TAB PO SCH (20:17)
[2020-10-08] MEDS: LORazepam 0.5 MG TAB PO SCH (20:20)
[2020-10-09] MEDS: KETOROLAC TROMETHAMINE 15 MG/ML VIAL IV SCH ×3 (00:10→13:23)
[2020-10-09] MEDS: SODIUM CHLORIDE 0.9% 1000ML 1,000 ML IV SCH (00:10)
[2020-10-09] MEDS: ACETAMINOPHEN 1,000 MG/100 ML VIAL IV PRN ×2 (00:18→08:17)
[2020-10-09] MEDS: ceFAZolin 2000MG 2,000 MG/15 ML SYR IV SCH (02:52)
[2020-10-09] MEDS: POLYETHYLENE (MIRALAX) 17 GM PACK PO SCH ×4 (05:30→23:29)
[2020-10-09 06:25] LABS: Basophils # (auto) 0.02 K/uL (0-0.2); Basophils % (auto) 0.3 %; Eosinophils # (auto) 0.17 K/uL (0-0.5); Eosinophils % (auto) 2.3 %; Hematocrit (blood only) 38.7 % (37-47); Hemoglobin 12.5 g/dL (12.0-16.0); Immature Granulocytes # (auto) 0.01 K/uL (0.00-0.02); Immature Granulocytes % (auto) 0.1 %; Lymphocytes # (auto) 1.46 K/uL (1.2-3.4); Lymphocytes % (auto) 19.4 %; Mean Corpuscular Hemoglobin 30.3 pg (25-34); Mean Corpuscular Hgb Conc 32.3 g/dL (32-36); Mean Corpuscular Volume 93.7 fL (80-100); Mean Platelet Volume 10.3 fL (7.4-10.4); Monocytes # (auto) 0.54 K/uL (0.11-0.59); Monocytes % (auto) 7.2 %; Neutrophils # (auto) 5.31 K/uL (1.4-6.5); Neutrophils % (auto) 70.7 %; Platelet Count 209 K/uL (130-400); RDW Coefficient of Variation 13.3 % (11.5-14.5); RDW Standard Deviation 45.9 fL (36.4-46.3); Red Blood Count 4.13 M/uL (4.2-5.4); White Blood Count 7.51 K/uL (4.8-10.8)
[2020-10-09] MEDS: LEVOTHYROXINE SODIUM 25 MCG TABLET PO SCH (06:32)
[2020-10-09 06:59] LABS: BUN Creatinine Ratio 12.5 (10-20); Calcium 8.7 mg/dl (8.5-10.1); Creatinine Clr Calc Pharmacy 67.6 ml/min; Est GFR (African American) 65.9; Est GFR (Non-African American) 56.9; Potassium 3.9 mmol/L (3.5-5.1)
[2020-10-09] MEDS: LORazepam 0.5 MG TAB PO SCH ×2 (08:29→21:12)
--- NOTE | 2020-10-09 09:28 | Hospitalist Progress Note ---
Date of Service October 09, 2020 Assessment & Plan (1) Spinal stenosis, thoracic region: (2) Status post thoracic spinal fusion: s/p T11-T12 decompression fusion POD #[address] Webster tolerated procedure well Pain/wound management per ortho Activity and therapy as directed by Ortho Encourage incentive spirometry Monitor H&H (3) Hyperlipidemia: continue statin (4) Hypothyroidism: continue levothyroxine (5) Anxiety: Depression w/ anxiety continue escitalopram and lorazepam mood stable (6) Obesity (BMI 35.0-39.9 without comorbidity): BMI 37.2 encourage diet and lifestyle modifications (7) DVT prophylaxis: per primary Disposition: per primary Follow up: PCP Dr. Wright upon discharge Thank you for this consultation. We will follow the patient with you during their hospital stay. You can reach a [facility] via pager @ [phone] Admission and Anticipated Discharge Date Admission Date: October 08, 2020 Subjective Pt is sitting up in bed in NAD. Reports she feels well. Denies any chest pain, shortness of breath, abd. pain, n/v. Pain well controlled. Review of Systems Review of Systems: All systems reviewed & are unremarkable except as noted in HPI & below Constitutional: no fever and no chills Respiratory: no cough and no dyspnea Cardiovascular: no chest pain and no palpitations Gastrointestinal: no abdominal pain, no nausea and no vomiting Physical Exam Physical Exam: Constitutional: WD/WN, vitals as above, NAD, sitting up in bed, pleasant, conversing easily Head: Normocephalic, Atraumatic Eyes: PERRL, EOMI, conjunctivae normal, anicteric sclerae ENMT: external ear and nose normal, oropharynx normal Neck: trachea midline, no thyromegaly normal visual inspection Respiratory: normal respiratory effort, lungs clear to auscultation, no wheeze, rales, rhonchi. Normal insp/exp effort, no accessory muscle use Cardiovascular: RRR, no murmur, no edema Vessels: no JVD or carotid bruit Chest: normal inspection of chest Abdomen: normal bowel sounds, soft, nontender Musculoskeletal: no cyanosis or clubbing, AROM to ext x 4 Skin: no rashes, warm and dry normal turgor Neurologic: PERRL, EOMI, no face palsy, no dysarthria CN's II-XI intact bilaterally and moves all extremities Psychiatric: A+Ox3, euthymic affect Results & Data Results & Data ([facility]) Vital Signs (Past 12 Hours) Vital Signs Temp Pulse Resp BP BP Pulse Ox 10/09/20 07:28 37.0 C 65 16 128/75 96 10/09/20 02:52 37.1 C 66 12 123/74 94 10/09/20 00:02 37.3 C 69 18 123/75 96 Laboratory Results 10/09/20 10/09/20 Range/Units 05:19 05:19 WBC 7.51 (4.8-10.8) K/uL RBC 4.13 L (4.2-5.4) M/uL Hgb 12.5 (12.0-16.0) g/dL Hct 38.7 (37-47) % MCV 93.7 (80-100) fL MCH 30.3 (25-34) pg MCHC 32.3 (32-36) g/dL RDW Std Deviation 45.9 (36.4-46.3) fL RDW Coeff of Naseem 13.3 (11.5-14.5) % Plt Count 209 (130-400) K/uL MPV 10.3 (7.4-10.4) fL Immature Gran % (Auto) 0.1 % Neut % (Auto) 70.7 % Lymph % (Auto) 19.4 % Dunn % (Auto) 7.2 % Eos % (Auto) 2.3 % Baso % (Auto) 0.3 % Neut # (Auto) 5.31 (1.4-6.5) K/uL Lymph # (Auto) 1.46 (1.2-3.4) K/uL Dunn # (Auto) 0.54 (0.11-0.59) K/uL Eos # (Auto) 0.17 (0-0.5) K/uL Baso # (Auto) 0.02 (0-0.2) K/uL Immature Gran # (Auto) 0.01 (0.00-0.02) K/uL Sodium 144 (136-145) mmol/L Potassium 3.9 (3.5-5.1) mmol/L Chloride 113 H (98-107) mmol/L Carbon Dioxide 26 (21-32) mmol/L Anion Gap 5.0 (3-11) BUN 13 (7-18) mg/dl Creatinine 1.02 (0.6-1.2) mg/dl Est Cr Clr Drug Dosing 67.6 ml/min Est GFR ( Amer) 65.9 Est GFR (Non-Af Amer) 56.9 BUN/Creatinine Ratio 12.5 (10-20) Glucose 98 (70-99) mg/dl Calcium 8.7 (8.5-10.1) mg/dl Medications Administered Current Inpatient Medications Acetaminophen (Acetaminophen 500 Mg Tab) 1,000 mg PO Q8H PRN PRN Reason: MILD Pain Scale 1,2,3 & Pre PT Stop: 11/07/20 12:38 Al Hydrox/Mg Hydrox/Simethicone (Aluminum/Magnesium Susp 30 Ml Udc) 30 ml PO Q6H PRN PRN Reason: Dyspepsia Stop: 11/07/20 12:38 Atorvastatin Calcium (Atorvastatin 10 Mg Tab) 10 mg PO HS [facility] Stop: 11/07/20 20:59 Last Admin: 10/08/20 20:15 Dose: 10 mg Documented by: Bisacodyl (Bisacodyl 10 Mg Supp) 10 mg CA DAILY PRN PRN Reason: Constipation Stop: 11/07/20 12:38 Cyclobenzaprine HCl (Cyclobenzaprine Hcl 10 Mg Tab) 10 mg PO HS PRN PRN Reason: Muscle Spasm Stop: 11/07/20 12:38 Diphenhydramine HCl (Diphenhydramine Capsule 25 Mg Cap) 25 mg PO Q6H PRN PRN Reason: Allergic Rhinitis/Insomnia Stop: 11/07/20 12:38 Escitalopram Oxalate (Escitalopram Oxalate 20 Mg Tab) 20 mg PO [facility] Stop: 11/08/20 08:59 Famotidine (Famotidine 20 Mg Tab) 20 mg PO Q12H PRN PRN Reason: Dyspepsia Stop: 11/07/20 12:38 Hydromorphone HCl (Hydromorphone Inj 0.5 Mg/0.5 Ml Syr) 0.5 mg IV Q3H PRN PRN Reason: MOD pain (scale 4-6) & Pre PT Stop: 10/22/20 12:38 Hydromorphone HCl (Hydromorphone Inj 1 Mg/Ml Syringe) 1 mg IV Q3H PRN PRN Reason: severe pain (scale 7-10) Stop: 10/22/20 12:38 Hydroxyzine HCl (Hydroxyzine Hcl 25 Mg Tab) 25 mg PO Q8H PRN PRN Reason: Anxiety Stop: 11/07/20 12:38 Lorazepam (Ativan) 0.5 mg in 1 mls @ 0.5 mls/min IV Q8H PRN PRN Reason: Sedation/Anxiety Stop: 11/07/20 12:38 Acetaminophen (Ofirmev) 1,000 mg in 100 mls @ 400 mls/hr IV Q8H PRN PRN Reason: MILD Pain Rating 1,2,3 Stop: 10/09/20 12:38 Last Infusion: 10/09/20 08:39 Dose: Infused Documented by: Promethazine HCl 12.5 mg/ (Sodium Chloride) 50.5 mls @ 204 mls/hr IV Q6H PRN PRN Reason: Nausea &/or Vomiting Stop: 11/07/20 12:38 Influenza Virus Vaccine Quadrival (Do Not Administer Flu Vaccine) 1 ea N/A PRN PRN PRN Reason: Notification Stop: 11/07/20 12:38 Ketorolac Tromethamine (Ketorolac Tromethamine 15 Mg/Ml Vial) 15 mg IV Q6 [facility] Stop: 10/09/20 12:01 Last Admin: 10/09/20 05:30 Dose: 15 mg Documented by: Levothyroxine Sodium (Levothyroxine Sodium 25 Mcg Tablet) 25 mcg PO DAILYBB [facility] Stop: 11/08/20 06:29 Last Admin: 10/09/20 06:32 Dose: 25 mcg Documented by: Lorazepam (Lorazepam 0.5 Mg Tab) 0.5 mg PO BID [facility] Stop: 11/07/20 20:59 Last Admin: 10/09/20 08:29 Dose: 0.5 mg Documented by: Lorazepam (Lorazepam 0.5 Mg Tab) 0.5 mg PO Q8H PRN PRN Reason: Sedation/Anxiety Stop: 11/07/20 12:38 Magnesium Hydroxide (Magnesium Hydroxide Susp 30 Ml Udc) 30 ml PO DAILY PRN PRN Reason: Constipation Stop: 11/07/20 12:38 Metoclopramide HCl (Metoclopramide Hcl Inj 5 Mg/Ml 2 Ml Vial) 10 mg IV Q6H PRN PRN Reason: Nausea &/or Vomiting Stop: 11/07/20 12:38 Naloxone HCl (Naloxone Hcl 0.4 Mg/1 Ml Vial/Carp) 0.1 mg IV Q5M PRN; Protocol PRN Reason: Oversedation/Resp Depression Stop: 11/07/20 12:38 Ondansetron HCl (Ondansetron Inj 2 Mg/Ml 2 Ml Vial) 4 mg IV Q6H PRN PRN Reason: Nausea &/or Vomiting Stop: 11/07/20 12:38 Ondansetron HCl (Ondansetron 4 Mg Od Tab) 4 mg PO Q6H PRN PRN Reason: Nausea Stop: 11/07/20 12:38 Oxycodone HCl (Oxycodone Hcl Ir 5 Mg Tab (Immediate Release)) 5 - 10 mg PO Q4H PRN PRN Reason: Moderate-Severe Pain & Pre PT Stop: 10/22/20 12:38 Pneumococcal Polyvalent Vaccine (Do Not Administer Pneumococcal Vaccine) 1 ea N/A PRN PRN PRN Reason: Notification Stop: 11/07/20 12:38 Polyethylene Glycol (Polyethylene (Miralax) 17 Gm Pack) 17 gm PO Q6 [facility] Stop: 11/08/20 05:59 Last Admin: 10/09/20 05:30 Dose: 17 gm Documented by: Pramipexole Dihydrochloride (Pramipexole Dihydrochlo 0.25 Mg Tab) 0.25 mg PO DAILY [facility] Stop: 11/08/20 08:59 Pramipexole Dihydrochloride (Pramipexole Dihydrochlo 0.5 Mg Tab) 0.5 mg PO HS [facility] Stop: 11/07/20 20:59 Last Admin: 10/08/20 20:17 Dose: Not Given Documented by: Senna/Docusate Sodium (Docusate Sodium/Senna 50/8.6mg Tab) 2 tab PO HS [facility] Stop: 11/07/20 20:59 Last Admin: 10/08/20 20:15 Dose: 2 tab Documented by: Sodium Biphosphate/Sodium Phosphate (Sod Phosphate/Sod Biphosphate Enema 132 Ml Btl) 132 ml CA ONE PRN PRN Reason: Constipation Stop: 11/07/20 12:38 Tramadol HCl (Tramadol Hcl 50 Mg Tablet) 50 - 100 mg PO Q4H PRN PRN Reason: Moderate-Severe Pain & Pre PT Stop: 11/07/20 12:38
[2020-10-09] MEDS: ESCITALOPRAM OXALATE 20 MG TAB PO SCH (09:30)
[2020-10-09] MEDS: PRAMIPEXOLE DIHYDROCHLO 0.25 MG TAB PO SCH (09:30)
--- NOTE | 2020-10-09 10:05 | Orthopedic Progress Note ---
Date of Service October 09, 2020 Assessment & Plan (1) Myelopathy concurrent with and due to spinal stenosis of cervical region: Admission and Anticipated Discharge Date Admission Date: October 08, 2020 This time we will continue physical therapy monitor KAREEN output anticipate possible discharge home tomorrow. Subjective Back pain controlled leg symptoms improved. Physical Exam Physical Exam: Patient is comfortable with good strength testing. Results & Data ([facility]) Vital Signs (Past 12 Hours) Vital Signs Temp Pulse Resp BP BP Pulse Ox 10/09/20 07:28 37.0 C 65 16 128/75 96 10/09/20 02:52 37.1 C 66 12 123/74 94 10/09/20 00:02 37.3 C 69 18 123/75 96
[2020-10-09] MEDS: ACETAMINOPHEN 500 MG TAB PO PRN (18:00)
[2020-10-09] MEDS: PRAMIPEXOLE DIHYDROCHLO 0.5 MG TAB PO SCH (21:08)
[2020-10-09] MEDS: ATORVASTATIN 10 MG TAB PO SCH (21:12)
[2020-10-09] MEDS: DOCUSATE SODIUM/SENNA 50/8.6MG TAB PO SCH (21:12)
[2020-10-10] MEDS: traMADol HCL 50 MG TABLET PO PRN ×2 (02:54→09:40)
[2020-10-10] MEDS: LEVOTHYROXINE SODIUM 25 MCG TABLET PO SCH (06:30)
[2020-10-10] MEDS: POLYETHYLENE (MIRALAX) 17 GM PACK PO SCH (06:30)
[2020-10-10] MEDS: ACETAMINOPHEN 500 MG TAB PO PRN (06:34)
[2020-10-10 08:15] LABS: Hematocrit (blood only) 36.4 % (37-47); Hemoglobin 11.9 g/dL (12.0-16.0)
[2020-10-10] MEDS: LORazepam 0.5 MG TAB PO SCH (08:44)
[2020-10-10] MEDS: ESCITALOPRAM OXALATE 20 MG TAB PO SCH (08:44)
[2020-10-10] MEDS: PRAMIPEXOLE DIHYDROCHLO 0.25 MG TAB PO SCH (08:44)
[2020-10-10] MEDS ORDERED: dexAMETHasone 8 MG in SYRINGE 0 ML IV SCH (09:00)
--- NOTE | 2020-10-10 11:03 | Discharge Summary ---
Date of Service October 10, 2020 Admission HPI Per Admitting Provider This is a 65-year-old female well-known to us that presents with marked decline in leg function with weakness and numbness. MRI of the thoracic spine demonstrates significant cord compression myelopathy. Principal Diagnosis Thoracic spinal stenosis with myelopathy Discharge Data Allergies Allergy/AdvReac Type Severity Reaction Status Date / Time No Known Allergies Allergy Unverified 10/08/20 07:42 Consultations 10/08/20 12:39 Consult Case Management - Discharge Planning Routine Consult Hospitalist Routine Procedures Performed Operation Date: 10/08/20 09:05 Actual Procedures p T11-T12 Decompression, Possible T11-T12 Fusion, Spinal Cord Monitoring(Not Applicable) - Levi Webster DO Ordered Studies 10/08/20 07:00 FL fluoroscopy <1hr Routine FL thoracic spine 2V Routine Hospital Course (1) Myelopathy concurrent with and due to spinal stenosis of cervical region: Patient underwent thoracic decompression fusion tolerated well second orthopedic for postop labor postop day 1 she was up and ambulating progressing properly. Postop day #2 KAREEN drain decreasing probably. Pain well controlled. Strength intact. Subsequent discharge home. Discharge orders instructions from the chart for further review. Total Time Total Time Spent Total Time Spent (In Minutes): 20 minutes Discharge Plan Discharge Items Patient Disposition: Home - Self-Care Reason For Visit: Spinal Stenosis, Thoracic Region Discharge Diagnosis: Thoracic spinal stenosis with myelopathy Activity: As commented below Non-emergency contact: Primary Care Provider Call non-emergency contact if: you have any medication questions Follow-up/Referrals: Kristopher Wright [Primary Care Provider] - Diet: Regular Addtl Attending Provider Instructions: ACTIVITY RECOMMENDATIONS: SELF CARE INSTRUCTIONS AFTER THORACIC/LUMBAR FUSIONS 1. You may walk to your tolerance. It is good exercise for your legs and back. Expect some back and intermittent leg aches and pains. 2. You may perform "counter-top" level activities (make a sandwich, velasquez with a project, etc.). 3. No bending or lifting of more than 10 pounds or back twisting of any nature (roll like a log when turning in bed). 4. You may ride in a car for 20-30 minutes at a time. No driving until after your first visit with your doctor. 5. Frequent changes of position and restricting sitting to 30 minutes at a time will help limit the amount of back spasms and stiffness you may experience. 6. You may discontinue the use of ambulatory aids (cane, crutches, etc.) once your strength and confidence allow. 7. You may aerospace medicine physician the shower and let water strike your incision when you arrive home at least once daily. Do not take a tub bath, sit in a hot tub or go into a swimming pool until after your first recheck in the office. SPECIAL CARE INSTRUCTIONS: VERY IMPORTANT TO READ AND REVIEW A. Your surgical incision has been closed with a cosmetic suture under the skin that will dissolve in about 6 weeks. In 14 days, you can use a pair of clean scissors and cut the suture that is left outside of the skin at the ends of your incision. 1. The small skin tapes can be removed 7 days after surgery if they have not fallen off by that point. 2. You may keep the wound open to air as much as possible to promote healing after post-op day number 5 unless told otherwise by your doctor. 3. If you think the wound looks like it is becoming infected (redness or worsening drainage) and/or you are experiencing fever, chill or worsening back pain and muscle spasms, contact the office so that we may evaluate you as soon as possible. B. Complications are uncommon, but please contact us if you have any signs or symptoms of: 1. wound infection (fever higher than 102.5 degrees F, redness, separation of wound, drainage, or increasing pain from the incision) 2. blood clots in legs (pain, swelling, redness and warmth in legs) 3. urinary tract infection (fever higher than 102.5 degrees F, burning upon urination or increased frequency of urination) 4. nerve problems (inability to walk on your toes or heels, numbness, loss of bowel or bladder control) 5. any other symptoms that concern you C. Please call the office at if you have any concerns or questions about your operation or recovery. D. No smoking! Smoking drastically decreases the chance of a solid fusion. E. Do not take any anti-inflammatory medications (Indocin, Advil, Motrin, Aspirin, Naprosyn, etc.) as these may inhibit the chance of a solid fusion. Tylenol is okay to take for pain. MANAGING PAIN AFTER SPINAL SURGERY 1. Narcotic medication is intended for short-term use and will be provided for surgical pain. Surgical pain usually lasts for a period of 4-6 weeks. Narcotic medication includes Percocet, Vicodin, Darvocet, Tylenol #3 or Lortab. 2. Longer-term pain is more appropriately treated with non-narcotic medication such as Tylenol ES. 3. Muscle spasm is not appropriately treated with narcotics. Muscle relaxers such as Soma, Flexeril or Skelaxin can be used along with Tylenol ES. 4. Remember that we all live with some "aches and pains". This is not unusual or uncommon after an injury or as we get older. a. Back pain is expected and may include muscle spasms for 4 to 6 weeks after surgery. The pain should gradually improve. If the pain worsens for no apparent reason, please contact the office. b. Intermittent leg pain may also be experienced and should not be concerned about unless it worsens for no apparent reason. If so, please contact the office. 5. We will provide appropriate medication within the normal guidelines of their prescribed use. We will also be very cautious and aware of potential abuse and extended duration of patients' medication needs. a. Pain medications are for your comfort and to assist with sleep and rest so that the tissue can heal. They are not provided in order to return to normal activity and should not be used through the day. To do so or worsening pain at night can result from ongoing tissue damage and development of tolerance to the prescribed medicine. 6. Please allow 2-3 days to process refills. Prescriptions will not be mailed but must be picked up at the office. FOLLOW UP VISIT: Keep your scheduled follow-up appointment. Any questions, please call the office at . Pending Studies at Discharge: No Stand-Alone Forms: [facility], Smoking Cessation Medications and DC Order Prescriptions: New tramadol 50 mg tablet 50 mg PO Q6H PRN (Reason: pain, moderate) Qty: 30 RF: 0 oxycodone 5 mg tablet 5 mg PO Q6H PRN (Reason: pain, severe) Qty: 20 RF: 0 Continued pramipexole 0.25 mg Tablet 0.25 mg PO DAILY RF: 0 pramipexole 0.5 mg Tablet 0.5 mg PO HS RF: 0 atorvastatin 10 mg tablet 10 mg PO DAILY RF: 0 levothyroxine 25 mcg Tablet 25 mcg PO DAILY RF: 0 lorazepam 0.5 mg Tablet 0.5 mg PO BID RF: 0 escitalopram oxalate 20 mg tablet 20 mg PO DAILY RF: 0 Discontinued celecoxib [Celebrex] 200 mg Capsule 200 mg PO QAM RF: 0 Discharge Orders: Discharge Order (Routine); Ordered 10/10/20 Ordered By: Levi Webster Admission Data Admit Date/Time: 10/08/20 11:32 Attending Provider: Levi Webster Admit Provider: Levi Webster Primary Care Provider: Kristopher Wright Other Providers: Manpreet Epps
== END 2020-10-10 12:40 | disposition home or self-care (01) | DRG 460 ==
LOC: ASU 07:20 → 3N 11:32